=== PATIENT | male | born 1980 | race Caucasian/White ===

== ENCOUNTER 2016-09-01 13:21 | Emergency (ER) | payer BC, OTHER ==
[~2016-09-01] VITALS: Ht 177.8 cm; Wt 66.0 kg
[~2016-09-01 13:21] MED LIST: CLIN150 PO; HYDR-3533 PO; IBUP800T23 PO
[2016-09-01 13:23] VITALS: BP 136/90; PULSE 82; RESP 16; TEMP 97.5; O2SAT 100
--- NOTE | 2016-09-01 14:18 | PD ---
Data Data Last Documented VS Vital Signs Date Time Temp Pulse Resp B/P Pulse Ox O2 Delivery O2 Flow Rate FiO2 09/01/16 13:23 97.5 82 16 136/90 100 Room Air MDM Supervised Visit with JOHNNY: Yes Narrative Course I, Dr. Almendarez, have reviewed the advance practice practioner's documentation and am in agreement, met with the patient face to face, made the diagnosis, and the medical decision making was done by me. *My assessment and Findings: 36-year-old male here with complaint of wrist weakness. Patient states that approximately 2 weeks ago he passed out and woke up the next morning with wrist drop. He is not able to extend the wrist. Notes some inability to extend the fingers and the hand and paresthesias in the first second and third fingers. This has been persistent. Exam is consistent with classic radial nerve palsy with wrist drop and paresthesias of the first through third fingertips. Patient was given splint for increased function and will given outpatient mandatory referral for neurology follow-up. Scripts No Active Prescriptions or Reported Meds Cathi Almendarez MD Sep 01, 2016 14:18
--- NOTE | 2016-09-01 14:27 | PD ---
HPI Chief Complaint: Abdominal Pain Time Seen by Provider: 14:18 Travel History International Travel<30 days: No Contact w/Intl Traveler<30days: No Traveled to known affect area: No History of Present Illness HPI Patient is a 36-year-old male presents to the emergency department for evaluation of right wrist weakness. He also presents complaining of epigastric abdominal pain. Patient states for the last 2 weeks he cannot lift his right wrist or open his fingers. He denies any injury or trauma. He states the first 3 fingers are numb and tingling. Patient states that he's had epigastric abdominal cramping today with burping. He states he has a history of the same, it usually resolves on its own and is usually related to excessive fluid intake. He states that it happened 2 days ago and he felt better yesterday and ate normally, he reports he ate a hamburger, contagious, several bowls of cereal , ice cream, and milk. He returned this morning. He believes he is lactose intolerant. He denies any nausea, vomiting. He states when it happens he will have diarrhea at times. PFSH Past Medical History ADHD: Yes Anxiety: Yes Depression: Yes Diminished Hearing: No Hepatitis: Yes (C) Immunizations Current: Yes Influenza Vaccination: No Past Surgical History Tonsillectomy: Yes (and adenoids) Social History Alcohol Use: Yes (OCCASSIONALLY) Tobacco Use: Yes (1/2 PPD) Substance Use: Yes (MARIJUANA) Allergies-Medications (Allergen,Severity, Reaction): Coded Allergies: No Known Allergies (Unverified , 09/01/16) Reported Meds & Prescriptions Reported Meds & Active Scripts Active No Active Prescriptions or Reported Medications Review of Systems Except as stated in HPI: all other systems reviewed are Neg General / Constitutional: No: Fever, Chills HENT: No: Headaches, Neck Stiffness, Neck Pain Cardiovascular: No: Chest Pain or Discomfort Respiratory: No: Shortness of Breath Gastrointestinal: Positive: Abdominal Pain, Indigestion, No: Nausea, Vomiting , Diarrhea, Loss of Appetite Musculoskeletal: No: Myalgias Neurologic: Positive: Weakness, Focal Abnormalities Physical Exam Narrative GENERAL: An, well-developed, alert male. Resting comfortably in no acute distress. SKIN: Focused skin assessment warm/dry. HEAD: Atraumatic. Normocephalic. EYES: Pupils equal and round. No scleral icterus. No injection or drainage. ENT: No nasal bleeding or discharge. Mucous membranes pink and moist. NECK: Trachea midline. No JVD. CARDIOVASCULAR: Regular rate and rhythm. No murmur appreciated. RESPIRATORY: No accessory muscle use. Clear to auscultation. Breath sounds equal bilaterally. GASTROINTESTINAL: Abdomen soft, non-tender, nondistended. Hepatic and splenic margins not palpable. Bowel sounds, no rebound, no guarding. MUSCULOSKELETAL: No obvious deformities. No clubbing. No cyanosis. No edema. Right wrist with wrist and hand extensor, first through third finger paresthesia. Radial pulse, presents with 3 second capillary refill. NEUROLOGICAL: Awake and alert. No obvious cranial nerve deficits. Motor grossly within normal limits. Normal speech. PSYCHIATRIC: Appropriate mood and affect; insight and judgment normal. Data Data Last Documented VS Vital Signs Date Time Temp Pulse Resp B/P Pulse Ox O2 Delivery O2 Flow Rate FiO2 09/01/16 13:23 97.5 82 16 136/90 100 Room Air Orders Splint Or Brace Apply/Monitor (09/01/16 14:17) [facility] Medical Decision Making Medical Screen Exam Complete: Yes Emergency Medical Condition: Yes Interpretation(s) Vital Signs Date Time Temp Pulse Resp B/P Pulse Ox O2 Delivery O2 Flow Rate FiO2 09/01/16 13:23 97.5 82 16 136/90 100 Room Air Differential Diagnosis Nerve palsy versus CVA versus radiculopathy versus gastritis versus food allergy versus other Narrative Course Patient is a 36-year-old male presenting to emergency Department for evaluation of 2 weeks of right wrist weakness and first-third finger numbness. Physical examination is most consistent with radial nerve palsy, patient was also seen and evaluated by my attending physician. Patient will be provided with a mandatory referral to neurology. He was advised that symptoms should begin to improve on their own. Patient was advised to avoid foods that exacerbate his symptoms and follow a healthy well-balanced diet. Advised to return to emergency department for any new or worsening symptoms. Patient verbalized understanding of instructions. Patient stable for discharge. 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 Patient Instructions: General Instructions, Lactose Intolerance (GEN), Radial Nerve Palsy (ED) Additional Instructions: Follow-up with neurology, a mandatory referral has been made for you, you'll be contacted. Avoid exacerbating foods Maintain a healthy diet Return to emergency department for any new or worsening symptoms Med/Other Pt SpecificInfo: No Change to Meds Scripts No Active Prescriptions or Reported Meds Disposition: 01 DISCHARGE HOME Condition: Stable Romelia Servin Sep 01, 2016 14:27
== END 2016-09-01 14:33 | disposition home or self-care (01) ==
LOC: NEPD 13:21
DX: G56.30 Lesion of radial nerve, unspecified upper limb (principal); F90.9 Attention-deficit hyperactivity disorder, unspecified type; F41.9 Anxiety disorder, unspecified; F32.9 Major depressive disorder, single episode, unspecified; F17.200 Nicotine dependence, unspecified, uncomplicated
CPT/HCPCS: 99284; L3908

== ENCOUNTER 2016-12-12 10:17 | Emergency (ER) | payer SELFPAY ==
[~2016-12-12] VITALS: Ht 177.8 cm; Wt 70.0 kg
[2016-12-12 10:24] VITALS: BP 120/83; PULSE 81; RESP 20; TEMP 98.5; O2SAT 99
--- NOTE | 2016-12-12 10:58 | PD ---
HPI Chief Complaint: Pain: Acute or Chronic Time Seen by Provider: 10:54 Travel History International Travel<30 days: No Contact w/Intl Traveler<30days: No Traveled to known affect area: No History of Present Illness HPI 36-year-old male presents to emergency Department with complaint of left heel pain due to his calluses. He is homeless and has been walking around in flip- flop for the last few days causing his pain. Denies paresthesias, loss of sensation, decreased range of motion, decreased strength to the affected extremity. Denies fever, vomiting. Has not taken any medications or tried any treatments to alleviate his symptoms. No known allergies. Has no other medical complaints. No other modifying factors or associated signs and symptoms. History Social History Alcohol Use: Yes (OCCASSIONALLY) Tobacco Use: Yes (1/2 PPD) Allergies-Medications (Allergen,Severity, Reaction): Coded Allergies: No Known Allergies (Unverified , 12/12/16) Reported Meds & Prescriptions Reported Meds & Active Scripts Active No Active Prescriptions or Reported Medications Review of Systems Except as stated in HPI: all other systems reviewed are Neg Physical Exam Narrative GENERAL: Well-nourished, well-developed male patient, in no acute distress; afebrile, nontoxic-appearing SKIN: Warm and dry. Left heel with thick hardened calluses; without erythema, edema, drainage. No signs of infection. With tenderness on palpation. Left foot is without erythema, edema. Left lower extremity supple and non-tense with 2+ pedal pulses and sensory intact and without erythema or edema. HEAD: Atraumatic. Normocephalic. EYES: Pupils equal and round. No scleral icterus. No injection or drainage. ENT: Mucosa pink and moist. Airway patent. NECK: Trachea midline. CARDIOVASCULAR: Regular rate. RESPIRATORY: No accessory muscle use. GASTROINTESTINAL: Flat. MUSCULOSKELETAL: No obvious deformities. No clubbing. No cyanosis. No edema. NEUROLOGICAL: Awake and alert. Oriented 3. No obvious cranial nerve deficits. Motor grossly within normal limits. Normal speech. PSYCHIATRIC: Appropriate mood and affect; insight and judgment normal. Data Data Last Documented VS Vital Signs Date Time Temp Pulse Resp B/P Pulse Ox O2 Delivery O2 Flow Rate FiO2 12/12/16 10:44 18 12/12/16 10:24 98.5 81 120/83 99 Room Air [facility] Medical Screen Exam Complete: Yes Emergency Medical Condition: No Differential Diagnosis Callouses, bone spur, foot pain Narrative Course 36-year-old male with callous formation to the left heel of his foot causing him pain. He is homeless and been walking for multiple days in flip-flops causing his pain. Denies injury. No signs of infection. Left foot is without erythema, edema. Left lower x-ray is supplemental to 2+ pedal pulse and sensory intact without erythema or edema. Intact patient to follow up with primary care provider and podiatry. Vital signs are stable and the patient is stable for outpatient follow-up and treatment. The patient has no urgent or emergent medical complaints. There is no emergent or urgent medical need at this time. I instructed the patient to follow up with their primary care provider. A medical screening exam was performed: At the time of evaluation the presenting medical condition was determined not to be of an emergent nature. The patient was given the option of receiving additional care, but declined. Patient was given options for additional community resources from which to obtain care. The Patient Has Been advised to seek medical attention for their presenting complaint. The patient has been advised to return to the ER at any time if an emergent condition develops. Primary Impression: Encounter for medical screening examination Scripts No Active Prescriptions or Reported Meds Condition: Stable Shagufta Barreto [facility] Dec 12, 2016 10:58
== END 2016-12-12 11:01 | disposition left against medical advice (07) ==
LOC: NEPK 10:17
DX: M79.672 Pain in left foot (principal); Z59.0 Homelessness
CPT/HCPCS: 99281